=== PATIENT | male | born 1940 | race Caucasian/White ===

== ENCOUNTER 2018-05-10 13:58 | Observation (INO) | payer MEDICARE, BC, SELFPAY ==
[2018-05-10] VITALS (10 sets, daily range): BP systolic 121–173; BP diastolic 71–104; PULSE 57–118; RESP 15–20; TEMP 36.5–37.4; O2SAT 95–100; BMI 22.9
--- NOTE | 2018-05-10 14:13 | DI.RAD.S_ITS ---
PROCEDURE: XR CHEST 1V INDICATIONS: substernal chest pain TECHNIQUE: One view of the chest was acquired. COMPARISON: None. FINDINGS: Surgical changes and devices: None. Lungs and pleura: No pleural effusions or pneumothorax. Lungs are clear. Mediastinum: Mediastinal contours appear normal. Heart size is normal. Bones and chest wall: No suspicious bony lesions. Overlying soft tissues appear unremarkable. IMPRESSION: No acute cardiopulmonary disease process. Dictated by: Anusha Matos MD, PhD on 05/10/2018 at 14:40 Approved by: Anusha Matos MD, PhD on 05/10/2018 at 14:40
--- NOTE | 2018-05-10 14:30 | ED.CHESTPAIN ---
HPI - Chest Pain General Chief Complaint: Chest Pain Stated Complaint: CHEST PAIN Time Seen by Provider: 05/10/18 14:30 Source: patient Mode of arrival: ambulatory Limitations: no limitations History of Present Illness HPI narrative: 78-year-old male with a remote history of hypertension presents with severe substernal chest pain that started after eating today and lasted until arrival at the ER today. He received 4 baby aspirin and noted that over time his pain resolved. It was associated with severe nausea and vomiting but he denied shortness of breath, radiation of the pain, or diaphoresis. He has not had fevers or chills. He notes that he has a history of intermittent GERD and takes famotidine occasionally for this. This felt different in his heartburn. He is quite concerned because his father had a history of cardiac disease with a bypass surgery at age 75, and later at age 90 due to congestive heart failure. He has a trip to [place] planned next week and he is wanting to make sure that his heart is okay. At the time of my evaluation of him his chest pain had resolved. Related Data Home Medications Medication Instructions Recorded Confirmed cholecalciferol (vitamin D3) 2,000 unit PO DAILY 05/10/18 05/10/18 [Vitamin D3] famotidine 40 mg PO BEDTIME 05/10/18 05/10/18 multivitamin 1 tab PO DAILY 05/10/18 05/10/18 Allergies Allergy/AdvReac Type Severity Reaction Status Date / Time No Known Drug Allergies Allergy Verified 05/10/18 18:40 Review of Systems Review of Systems All systems reviewed & are unremarkable except as noted in HPI and below Constitutional Denies chills, Denies fever(s), Denies lethargy and Denies weakness Eyes Denies change in vision, Denies eye discharge, Denies irritation and Denies loss of vision ENT Ears, Nose, Mouth, and Throat: Denies change in voice, Denies neck pain and Denies sore throat Cardiovascular Reports chest pain, Denies irregular heart rhythm, Denies lightheadedness, Denies palpitations, Denies dyspnea, Denies dyspnea on exertion and Denies orthopnea Respiratory Denies cough, Denies dyspnea, Denies dyspnea on exertion and Denies wheezing Gastrointestinal Gastrointestinal: Denies abdominal pain, Denies change in bowel habits, Denies diarrhea, Reports nausea and Reports vomiting Genitourinary Denies hematuria, Denies flank pain, Denies urinary incontinence and Denies urinary urgency Musculoskeletal Denies neck pain Integumentary/Breasts Denies pruritus, Denies erythema, Denies rash and Denies wounds Neurologic Denies confusion, Denies loss of vision and Denies weakness Psychiatric Denies anxiety, Denies confusion, Denies depression, Denies homicidal ideation and Denies suicidal ideation Endocrine Denies palpitations Hematologic/Lymphatic Denies easy bruising Allergic/Immunologic Denies wheezing PFSH Medical History Prostate CA (Acute) Family History: Reviewed 05/10/18 by Maryse Quach MD Social History household members: spouse Smoking Status: Never smoker Exam Initial Vital Signs Initial Vital Signs: Vital Signs Temperature 97.7 F 05/10/18 14:02 Pulse Rate 81 05/10/18 14:02 Respiratory Rate 16 05/10/18 14:02 Pulse Oximetry 97 05/10/18 14:02 Const General: cooperative and well developed Nutritional Appearance: well nourished Orientation: alert, awake, oriented x3 and not confused HENMT Head: normocephalic and atraumatic Ears: external ears normal and TM's normal bilaterally Nose: external nose normal and No nasal discharge Face and sinus: sinuses nontender, face symmetric, no sinus tenderness and No dry mucous membranes Mouth: oral mucosae normal and moist mucous membranes Teeth and gingiva: dentition normal Throat: tonsils normal and uvula midline Eyes General: appearance normal, both eyes and all related structures Eyelids: eyelids normal Conjunctivae: conjunctivae normal Sclera: sclerae normal Pupils: PERRL EOM: EOM intact bilaterally Neck Neck: normal visual inspection, trachea midline, No lymphadenopathy, No midline deformity and No JVD Lymphatic: No lymphedema Chest Chest: normal inspection of the chest Resp Effort & Inspection: normal respiratory effort, able to speak in complete sentences, no respiratory distress and no use of accessory muscles Auscultation: clear to auscultation bilaterally, no rales, no rhonchi and no wheezes Cardio Rate: regular rate Rhythm: regular rhythm Heart Sounds: no click, no gallops, no murmurs and no rubs Pulses: normal peripheral pulses GI Inspection: non-distended Palpation: soft, no hepatosplenomegaly, No guarding, No pulsatile mass and No tender Auscultation: normal bowel sounds Back/Spine/Pelvis Back: No CVA tenderness Cervical Spine: cervical ROM normal and No pain with cervical ROM Thoracic/Lumbar Spine: thoracic and lumbar spine normal to inspection Skin General: no rashes or lesions noted, No jaundice and No petechiae Neuro General: alert, oriented x3, gait normal and no focal motor deficits Speech: speech normal Extrem General: full ROM, no clubbing, cyanosis or edema, no pedal edema and no calf tenderness Psych Appearance: well kempt Mental Status: mental status grossly normal Attitude: cooperative Thought Content: normal and suicidality Judgment: judgment good Scores HEART Score Heart Score history: Slightly Suspicious Heart Score EKG: Non-Specific repolarization disturbance Heart Score Age: > or = 65 years old Heart Score risk factors: 1-2 risk factors Heart Score troponin: < or = to normal limit Heart Score Total: 4 Course Orders Ordered: ED Orders 05/10/18 14:07 EKG-12 Lead Stat 05/10/18 14:13 XR chest 1V Stat 05/10/18 14:20 Complete Blood Count AUTO DIFF Stat Comprehensive Metabolic Panel Stat Lipase Stat Troponin with CK Cardiac Panel Stat 05/10/18 21:00 Troponin I Routine 05/11/18 05:00 Lipid Panel Routine Aspirin (Aspirin Ec) 81 mg PO DAILY PAGE Multivitamins (Tab-A-Ana Cristina) 1 tab PO DAILY PAGE Pantoprazole Sodium (Protonix) 40 mg PO 0700 PAGE Ranitidine HCl (Zantac) 150 mg PO BEDTIME PAGE Vitamin D (Vitamin D3) 2,000 unit PO DAILY PAGE Discontinued Medications Aspirin (Aspirin Chew) 324 mg PO NOW ONE Stop: 05/10/18 14:14 Last Admin: 05/10/18 14:36 Dose: 324 mg Sodium Chloride (Normal Saline 0.9%) 1,000 mls @ 150 mls/hr IV CONT PAGE Last Infusion: 05/10/18 18:42 Dose: 0 mls/hr Admin: 05/10/18 14:36 Dose: 150 mls/hr Reevaluation(s) Reevaluation #1: Discussed Dr. Fernandez advice with pt and he is somewhat uncomfortable with this plan. Plan to page cardiology for another opinion and discuss f/u directly with Dr. Thomason to facilitate f/u. Before this could be carried out Dr. Quach came to see pt and she will admit Consultations Consultation #1: Discussed patient with Dr. Maryse Quach. Notes his heart score should be a 3 and feels he can safely be followed up outpt. Time: 16:42 Vital Signs - 8 hr 05/10/18 14:02 05/10/18 14:15 05/10/18 14:35 Temperature 97.7 F Pulse Rate 81 67 118 H Respiratory Rate 16 17 20 Blood Pressure Blood Pressure [Right Arm] 145/78 H 121/91 H Pulse Oximetry 97 98 95 05/10/18 15:38 05/10/18 16:37 05/10/18 17:00 Temperature Pulse Rate 61 65 57 L Respiratory Rate 17 19 15 Blood Pressure Blood Pressure [Right Arm] 137/71 H 173/86 H 143/80 H Pulse Oximetry 98 99 100 05/10/18 18:15 05/10/18 18:35 Temperature 98.9 F Pulse Rate 57 L 66 Respiratory Rate 16 16 Blood Pressure 162/104 H Blood Pressure [Right Arm] 142/80 H Pulse Oximetry 98 96 MDM - Chest Pain Differential Diagnosis Likely stable angina, unstable angina pectoris, atypical chest pain, chest pain and other (GERD) Lab Data Attestation: I reviewed the patient's lab results. Result diagrams: 05/10/18 14:20 05/10/18 14:20 Lab Results 05/10/18 05/10/18 Range/Units 14:20 14:20 WBC 4.7 (4.5-11.0) X10^3/uL RBC 4.89 (4.5-5.9) X10^6/uL Hgb 15.2 (13.5-17.5) g/dL Hct 44.6 (41-53) % MCV 91.2 (80-100) fL MCH 31.1 (26-34) PG MCHC 34.1 (30-36) % RDW 13.1 (11.6-14.8) % Plt Count 204 (150-400) X10^3/uL Neut % (Auto) 73.5 (50-75) % Lymph % (Auto) 16.6 L (25-40) % [place] % (Auto) 6.2 (3-14) % Eos % (Auto) 2.9 (2-4) % Baso % (Auto) 0.8 (0-2) % Neut # (Auto) 3500 (0353-1073) /uL Sodium 141 (137-145) mmol/L Potassium 4.1 (3.4-5.1) mmol/L Chloride 103 (98-107) mmol/L Carbon Dioxide 29 (22-32) mmol/L BUN 20 (9-20) mg/dL Creatinine 1.10 (0.66-1.25) mg/dL Estimated GFR > 60.0 (>60) mL/min BUN/Creatinine Ratio 18.2 (6-22) Glucose 132 H (80-110) mg/dL Calcium 9.9 (8.4-10.2) mg/dL Total Bilirubin 0.7 (0.2-1.3) mg/dL AST 32 (17-59) IU/L ALT 36 (21-72) IU/L Alkaline Phosphatase 76 (38-126) U/L Total Creatine Kinase 72 (55-170) U/L Troponin I < 0.012 (0.01-0.034) ng/mL Total Protein 7.0 (6.3-8.2) g/dL Albumin 4.3 (3.5-5.0) g/dL Globulin 2.7 (1.7-4.1) g/dL Albumin/Globulin Ratio 1.6 (1.0-2.8) Lipase 143 (23-300) U/L Imaging Data Chest x-ray: Radiologist's impression: PROCEDURE: XR CHEST 1V INDICATIONS: substernal chest pain TECHNIQUE: One view of the chest was acquired. COMPARISON: None. FINDINGS: Surgical changes and devices: None. Lungs and pleura: No pleural effusions or pneumothorax. Lungs are clear. Mediastinum: Mediastinal contours appear normal. Heart size is normal. Bones and chest wall: No suspicious bony lesions. Overlying soft tissues appear unremarkable. IMPRESSION: No acute cardiopulmonary disease process. Dictated by: Anusha Matos MD, PhD on 05/10/2018 at 14:40 Approved by: Anusha Maots MD, PhD on 05/10/2018 at 14:40 ECG Data Attestation: I personally reviewed and interpreted this ECG as follows: Prior ECG tracings: available for review Interpretation: EKG performed at 1403 shows sinus rhythm with a rate of 71. T-wave inversion in lead 3, and mild ST depression noted in lead V4. No previous available for comparison. EKG repeated at 3:35 p.m. when patient was chest pain-free showed sinus bradycardia with a rate of 59. T-wave flattening in lead 3. Mild ST depression noted in V4 is less prominent MDM Narrative Medical decision making narrative: 78-year-old male presenting with severe chest pain after eating different from his typical GERD pain, and quite concerned about his heart given his family history. He has moderate risk for cardiac disease and although somewhat debatable about if he needs to be inpatient versus follow-up as an outpatient, it is my preference and his as well that he be evaluated inpatient. His EKG did show some minor/nonspecific repolarization abnormalities that improved when his chest pain resolved. After some debate, Dr. Quach kindly accepted the admission and will provide further workup and treatment. Discharge Plan Departure Patient Disposition: Admitted as Observation Clinical Impression: Chest pain Discharge Date/Time: 05/10/18 18:40 Interventions: ED Discharge Assessment Last Done: 05/10/18 18:40 Admit Date/Time: 05/10/18 16:51 Admit Provider: Maryse Quach
[2018-05-10 14:32] LABS: Add Manual Diff / Slide Review NO; Basophils Percent Auto 0.8 % (0-2); Eosinophils Percent Auto 2.9 % (2-4); Hematocrit 44.6 % (41-53); Hemoglobin 15.2 g/dL (13.5-17.5); Lymphocytes Percent Auto 16.6 % (25-40); Mean Corpuscular HGB Conc 34.1 % (30-36); Mean Corpuscular Hemoglobin 31.1 PG (26-34); Mean Corpuscular Volume 91.2 fL (80-100); Monocytes Percent Auto 6.2 % (3-14); Neutrophils Absolute Auto 3500 /uL (3000-5900); Neutrophils Percent Auto 73.5 % (50-75); Platelet Count 204 X10^3/uL (150-400); Red Blood Cell Count 4.89 X10^6/uL (4.5-5.9); Red Cell Distribution Width 13.1 % (11.6-14.8); White Blood Cell Count 4.7 X10^3/uL (4.5-11.0)
[2018-05-10] MEDS: ASPIRIN 81 MG TAB 324 MG PO (14:36)
[2018-05-10] MEDS: SODIUM CHLORIDE 0.9% 1,000 ML 150 ML IV (14:36)
[2018-05-10 14:41] LABS: Alanine Aminotransferase 36 IU/L (21-72); Albumin 4.3 g/dL (3.5-5.0); Albumin Globulin Ratio 1.6 (1.0-2.8); Alkaline Phosphatase 76 U/L (38-126); Aspartate Aminotransferase 32 IU/L (17-59); BUN Creatinine Ratio 18.2 (6-22); Bilirubin Total 0.7 mg/dL (0.2-1.3); Blood Urea Nitrogen 20 mg/dL (9-20); Calcium 9.9 mg/dL (8.4-10.2); Carbon Dioxide 29 mmol/L (22-32); Chloride 103 mmol/L (98-107); Creatine Kinase 72 U/L (55-170); Estimated Glomerular Filt Rate > 60.0 mL/min (>60); Globulin 2.7 g/dL (1.7-4.1); Glucose 132 mg/dL (80-110); HEMOLYSIS 20 (0-50); Lipase 143 U/L (23-300); Potassium 4.1 mmol/L (3.4-5.1); Sodium 141 mmol/L (137-145)
[2018-05-10 14:53] LABS: Troponin I < 0.012 ng/mL (0.01-0.034)
--- NOTE | 2018-05-10 17:02 | PM.HP.1 ---
History of Present Illness Date Patient Seen: 05/10/18 Time Patient Seen: 16:45 Chief complaint: CHEST PAIN Narrative: 78-year-old man, patient of Dr. Joey Anaya who was brought to the [facility] Emergency room earlier today for chest pain. He said he had lunch around 12:30. He ate chicken, rice and vegetables for lunch. He had sudden onset of chest pain after he had lunch. He described the pain was substernal. It was a severe pain. Severity was rated as 7 to 8/10. He did have nausea and was spitting out his oral secretions. He felt like he was not able to swallow, not even water. He was brought to the [facility] Emergency Room. Chest pain resolved after he arrived at the ER. EKG did not show significant ST-T changes. His 1st troponin was negative. He who was admitted to the medicine floor for chest pain. Patient History Comment: GERD History of hypertension, currently not on any medications Hyperlipidemia Prostate cancer, 2005, status post radioactive seed placement, radiation treatment, and Lupron therapy Last colonoscopy was 1-2 years ago Last EGD was about 18 years ago. Family & Social History Family History: Reviewed 05/10/18 by Maryse Quach MD Social History: He is . He lives with his . He drinks 1-2 alcoholic beverages a night. Denies cigarette smoking. He drinks 1-2 cups of coffee in the morning. Meds Home Medications Medication Instructions Recorded Confirmed Type cholecalciferol (vitamin D3) 2,000 unit PO DAILY 05/10/18 05/10/18 History [Vitamin D3] famotidine 40 mg PO BEDTIME 05/10/18 05/10/18 History multivitamin 1 tab PO DAILY 05/10/18 05/10/18 History Allergies Allergy/AdvReac Type Severity Reaction Status Date / Time No Known Drug Allergies Allergy Verified 05/10/18 14:13 Review of Systems Constitutional Comments: No fever chills or sweats. Cardiovascular Cardiovascular: Reports as per HPI Respiratory Comments: No cough or wheezing Gastrointestinal Gastrointestinal: Reports heartburn Genitourinary Comments: No dysuria Musculoskeletal Comments: No back pain Exam Vital Signs (past 8 hours): Vital Signs - 8 hr 05/10/18 14:02 05/10/18 14:15 05/10/18 14:35 Temperature 97.7 F Pulse Rate 81 67 118 H Respiratory Rate 16 17 20 Blood Pressure [Right Arm] 145/78 H 121/91 H Pulse Oximetry 97 98 95 05/10/18 15:38 05/10/18 16:37 Temperature Pulse Rate 61 65 Respiratory Rate 17 19 Blood Pressure [Right Arm] 137/71 H 173/86 H Pulse Oximetry 98 99 Pulse Oximetry 99 Oxygen Delivery Method Room Air Narrative Exam Narrative: GENERAL: Well-appearing, well-nourished and in no acute distress. HEENT: Head normocephalic, atraumatic. Eyes pupils equal round NECK: Supple, no JVD, CHEST: Breath sounds equal bilaterally, no wheezes rales or rhonchi. CARDIAC: Regular rate and rhythm without murmurs, rubs or gallops. ABDOMEN: Soft, nontender. Normoactive bowel sounds all 4 quadrants. No guarding or rebound. EXTREMITIES: Normal range of motion, no clubbing or edema. NEUROLOGICAL: Alert and oriented; Normal muscle strength on upper and lower extremities. Mild left-sided facial weakness SKIN: Warm, dry, no petechiae, no rashes or lesions. Objective Labs Result Diagrams: 05/10/18 14:20 05/10/18 14:20 Labs: Laboratory Results - last 24 hr 05/10/18 05/10/18 14:20 14:20 WBC 4.7 RBC 4.89 Hgb 15.2 Hct 44.6 MCV 91.2 MCH 31.1 MCHC 34.1 RDW 13.1 Plt Count 204 Neut % (Auto) 73.5 Lymph % (Auto) 16.6 L [place] % (Auto) 6.2 Eos % (Auto) 2.9 Baso % (Auto) 0.8 Neut # (Auto) 3500 Sodium 141 Potassium 4.1 Chloride 103 Carbon Dioxide 29 BUN 20 Creatinine 1.10 Estimated GFR > 60.0 BUN/Creatinine Ratio 18.2 Glucose 132 H Calcium 9.9 Total Bilirubin 0.7 AST 32 ALT 36 Alkaline Phosphatase 76 Total Creatine Kinase 72 Troponin I < 0.012 Total Protein 7.0 Albumin 4.3 Globulin 2.7 Albumin/Globulin Ratio 1.6 Lipase 143 Assessment & Plan Plan: Assessment/Plan Narrative: 1. Chest pain: Atypical for coronary artery disease. His chest pain is most likely from esophageal spasm. Patient does have a heart score of 4. He is very concerned about possible coronary artery disease with his family history of coronary artery disease in his father and his sister's recent episode of chest pain. We will check serial troponin to rule out [place]. Schedule him for a nuclear medicine treadmill stress test in the morning. 2. GERD: He has GERD symptom is not adequately controlled. We will start him on Protonix 40 mg once a day. Continue H2 sera at night. 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 3. Hyperlipidemia: Recheck fasting lipid panel in the morning. He may benefit from statin therapy 4. Hypertension: His blood pressure was noticed to be 170 when I interviewed him at the ER. He says his blood pressure is usually around 120 systolic. We will continue monitor. He is not currently on any antihypertensive medications. 5. 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 He was noted to have mild left-sided facial weakness on physical exam. He has been having mild left-sided facial discomfort with left ear pain for about week. 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 Since his onset was a week ago, no treatment is needed at this time. 6. Disposition: Likely discharge home later tomorrow after stress test.
--- NOTE | 2018-05-10 17:11 | P.HP_ITS ---
History of Present Illness Date Patient Seen: 05/10/18 Time Patient Seen: 16:45 Chief complaint: CHEST PAIN Narrative: 78-year-old man, patient of Dr. Joey Anaya who was brought to the [facility] Emergency room earlier today for chest pain. He said he had lunch around 12:30. He ate chicken, rice and vegetables for lunch. He had sudden onset of chest pain after he had lunch. He described the pain was substernal. It was a severe pain. Severity was rated as 7 to 8/10. He did have nausea and was spitting out his oral secretions. He felt like he was not able to swallow, not even water. He was brought to the [facility] Emergency Room. Chest pain resolved after he arrived at the ER. EKG did not show significant ST-T changes. His 1st troponin was negative. He who was admitted to the medicine floor for chest pain. Patient History Comment: GERD History of hypertension, currently not on any medications Hyperlipidemia Prostate cancer, 2005, status post radioactive seed placement, radiation treatment, and Lupron therapy Last colonoscopy was 1-2 years ago Last EGD was about 18 years ago. Family & Social History Family History: Reviewed 05/10/18 by Maryse Quach MD Social History: He is . He lives with his . He drinks 1-2 alcoholic beverages a night. Denies cigarette smoking. He drinks 1-2 cups of coffee in the morning. Meds Home Medications Medication Instructions Recorded Confirmed Type cholecalciferol (vitamin D3) 2,000 unit PO DAILY 05/10/18 05/10/18 History [Vitamin D3] famotidine 40 mg PO BEDTIME 05/10/18 05/10/18 History multivitamin 1 tab PO DAILY 05/10/18 05/10/18 History Allergies Allergy/AdvReac Type Severity Reaction Status Date / Time No Known Drug Allergies Allergy Verified 05/10/18 14:13 Review of Systems Constitutional Comments: No fever chills or sweats. Cardiovascular Cardiovascular: Reports as per HPI Respiratory Comments: No cough or wheezing Gastrointestinal Gastrointestinal: Reports heartburn Genitourinary Comments: No dysuria Musculoskeletal Comments: No back pain Exam Vital Signs (past 8 hours): Vital Signs - 8 hr 3 05/10/18 14:02 05/10/18 14:15 05/10/18 14:35 Temperature 97.7 F Pulse Rate 81 67 118 H Respiratory Rate 16 17 20 Blood Pressure [Right Arm] 145/78 H 121/91 H Pulse Oximetry 97 98 95 3 05/10/18 15:38 05/10/18 16:37 Temperature Pulse Rate 61 65 Respiratory Rate 17 19 Blood Pressure [Right Arm] 137/71 H 173/86 H Pulse Oximetry 98 99 Pulse Oximetry 99 Oxygen Delivery Method Room Air Narrative Exam Narrative: GENERAL: Well-appearing, well-nourished and in no acute distress. HEENT: Head normocephalic, atraumatic. Eyes pupils equal round NECK: Supple, no JVD, CHEST: Breath sounds equal bilaterally, no wheezes rales or rhonchi. CARDIAC: Regular rate and rhythm without murmurs, rubs or gallops. ABDOMEN: Soft, nontender. Normoactive bowel sounds all 4 quadrants. No guarding or rebound. EXTREMITIES: Normal range of motion, no clubbing or edema. NEUROLOGICAL: Alert and oriented; Normal muscle strength on upper and lower extremities. Mild left-sided facial weakness SKIN: Warm, dry, no petechiae, no rashes or lesions. Objective Labs Result Diagrams: 05/10/18 14:20 05/10/18 14:20 Labs: Laboratory Results - last 24 hr 05/10/18 05/10/18 14:20 14:20 WBC 4.7 RBC 4.89 Hgb 15.2 Hct 44.6 MCV 91.2 MCH 31.1 MCHC 34.1 RDW 13.1 Plt Count 204 Neut % (Auto) 73.5 Lymph % (Auto) 16.6 L [place] % (Auto) 6.2 Eos % (Auto) 2.9 Baso % (Auto) 0.8 Neut # (Auto) 3500 Sodium 141 Potassium 4.1 Chloride 103 Carbon Dioxide 29 BUN 20 Creatinine 1.10 Estimated GFR > 60.0 BUN/Creatinine Ratio 18.2 Glucose 132 H Calcium 9.9 Total Bilirubin 0.7 AST 32 ALT 36 Alkaline Phosphatase 76 Total Creatine Kinase 72 Troponin I < 0.012 Total Protein 7.0 Albumin 4.3 Globulin 2.7 Albumin/Globulin Ratio 1.6 Lipase 143 Assessment & Plan Plan: Assessment/Plan Narrative: 1. Chest pain: Atypical for coronary artery disease. His chest pain is most likely from esophageal spasm. Patient does have a heart score of 4. He is very concerned about possible coronary artery disease with his family history of coronary artery disease in his father and his sister's recent episode of chest pain. We will check serial troponin to rule out [place]. Schedule him for a nuclear medicine treadmill stress test in the morning. 2. GERD: He has GERD symptom is not adequately controlled. We will start him on Protonix 40 mg once a day. Continue H2 sera at night. 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 3. Hyperlipidemia: Recheck fasting lipid panel in the morning. He may benefit from statin therapy 4. Hypertension: His blood pressure was noticed to be 170 when I interviewed him at the ER. He says his blood pressure is usually around 120 systolic. We will continue monitor. He is not currently on any antihypertensive medications. 5. 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 He was noted to have mild left-sided facial weakness on physical exam. He has been having mild left-sided facial discomfort with left ear pain for about week. 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 Since his onset was a week ago, no treatment is needed at this time. 6. Disposition: Likely discharge home later tomorrow after stress test.
--- NOTE | 2018-05-10 19:05 | PC.NURSE ---
ADMISSION Received pt at approximately 1835, pt ambulated into room from ED with ED RN escort. Ox3, pleasant and cooperative with care. completely independent with ADLs. pt slightly hypertensive (already reported to MD while pt in ED) denies any chest pain, dizziness, SOB, or N/V. Telemetry monitoring maintained. pt educated on NM stress test planned for tomorrow and no caffeine diet. Oriented pt and to room and call light.
[2018-05-10 21:50] LABS: Troponin I < 0.012 ng/mL (0.01-0.034)
[2018-05-11 00:35] VITALS: O2SAT 97
[2018-05-11 05:04] VITALS: BP 130/78; PULSE 71; RESP 18; TEMP 36.6
[2018-05-11 05:51] LABS: Cholesterol 170 mg/dL (140-199); HDL Cholesterol 47 mg/dL (40-60); LDL Cholesterol Calculated 97 mg/dL (<100); Triglycerides 131 mg/dL (35-150)
[2018-05-11] MEDS: PANTOPRAZOLE 40 MG TABLET PO (06:05)
[2018-05-11] MEDS: SODIUM CHLORIDE 0.9% FLUSH 10 ML IV (08:41)
[2018-05-11 08:57] VITALS: O2SAT 97
[2018-05-11 09:16] VITALS: BP 135/79; PULSE 59; RESP 16; TEMP 36.6; O2SAT 95
[2018-05-11] MEDS: MULTIVITAMIN 1 TABLET 1 TAB PO (10:10)
[2018-05-11] MEDS: ASPIRIN EC 81 MG TABLET PO (10:10)
[2018-05-11] MEDS: CHOLECALCIFEROL (VITAMIN D3) 1,000 UNIT TABLET 2000 UNIT PO (10:11)
[2018-05-11 11:50] VITALS: BP 140/82; PULSE 62; RESP 18; TEMP 36.4; O2SAT 96
--- NOTE | 2018-05-11 14:01 | CM.DANOTE ---
DCP: assessment: case received, EMR reviewed and went to room to check in with pt. Room empty. RN Lilli reports pt is currently off floor getting a stress test. She reports he will likely be able to go home afterwards and that his is aware and will be returning. Pt is a 78 year old male who admitted yesterday late afternoon to care of hospitalist team. PCP: Dr. Joey Thomason Payer: Medicare and [facility] RN confirms current admission status is observation. P: check in with pt prn after he arrives back to floor to assist with any d/c planning needs (thus far none are identified by care team members). If home, will likely have clinic followup.
--- NOTE | 2018-05-11 16:40 | PM.DS.1 ---
History of Present Illness Chief complaint: CHEST PAIN Narrative: 78-year-old man, patient of Dr. Joey Thomason'florencio who was brought to the [facility] Emergency room earlier today for chest pain. He said he had lunch around 12:30. He ate chicken, rice and vegetables for lunch. He had sudden onset of chest pain after he had lunch. He described the pain was substernal. It was a severe pain. Severity was rated as 7 to 8/10. He did have nausea and was spitting out his oral secretions. He felt like he was not able to swallow, not even water. He was brought to the [facility] Emergency Room. Chest pain resolved after he arrived at the ER. EKG did not show significant ST-T changes. His 1st troponin was negative. He who was admitted to the medicine floor for chest pain. Discharge Providers Date of admission: 05/10/18 16:51 Primary care physician: Dr. Forest Thomason Discharge provider: Maryse Quach MD Discharge Date: 05/11/18 Summary Discharge Diagnosis: 1. Chest pain, possibly secondary to esophageal spasm 2. GERD 3. Hypertension 4. 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 He was ruled out for FL with 2-troponins. He had a nuclear medicine treadmill stress test which did not reveal any perfusion defect. The etiology of his chest pain is most likely from possible esophageal spasm. We have started him on Protonix 40 mg in the morning. Encouraged him to have outpatient EGD study to evaluate for possible esophageal stricture and screening for Yao's esophagus. A fasting lipid panel was checked while he was in the hospital. His total cholesterol was 170, LDL 97, HDL 47, and triglyceride was 131. Status at Discharge Cognitive/behavioral status at discharge: Alert and oriented x3 Functional status at discharge: independent ambulation Overall status at discharge: patient is back to baseline Time Spent with Patient Greater than 30 minutes Exam Vital Signs (past 8 hours): Vital Signs - 8 hr 05/11/18 08:57 05/11/18 09:16 05/11/18 11:50 Temperature 97.9 F 97.6 F Pulse Rate 59 L 62 Respiratory Rate 16 18 Blood Pressure 135/79 H 140/82 H Pulse Oximetry 97 95 96 Pulse Oximetry 96 Oxygen Delivery Method Room Air Oxygen Flow Rate 0 Objective Labs Result Diagrams: 05/10/18 14:20 05/10/18 14:20 Labs: Laboratory Results - last 24 hr 05/10/18 05/11/18 21:12 05:11 Troponin I < 0.012 Triglycerides 131 Cholesterol 170 LDL Cholesterol, Calc 97 HDL Cholesterol 47 Discharge Plan Discharge Plan Discharge Problem: Chest pain Patient Disposition: Home, Self-Care Discharge comment: Follow-up with Dr. Thomason within 2 weeks Provider Discharge Instructions Diet: Low-cholesterol Activity: as tolerated Discharge Data Attending Provider: Maryse Quach Admit Date/Time: 05/10/18 16:51
--- NOTE | 2018-05-11 16:40 | PC.NURSE ---
discharge pt has completed stress test and per , it was clear. Pt denies any chest pain/discomfort. alert and oriented and independent in room. Awaiting DC order from . Supportive spouse at bedside.
--- NOTE | 2018-05-11 16:45 | P.DS_ITS ---
History of Present Illness Chief complaint: CHEST PAIN Narrative: 78-year-old man, patient of Dr. Joey Thomason'florencio who was brought to the [facility] Emergency room earlier today for chest pain. He said he had lunch around 12:30. He ate chicken, rice and vegetables for lunch. He had sudden onset of chest pain after he had lunch. He described the pain was substernal. It was a severe pain. Severity was rated as 7 to 8/10. He did have nausea and was spitting out his oral secretions. He felt like he was not able to swallow, not even water. He was brought to the [facility] Emergency Room. Chest pain resolved after he arrived at the ER. EKG did not show significant ST-T changes. His 1st troponin was negative. He who was admitted to the medicine floor for chest pain. Discharge Providers Date of admission: 05/10/18 16:51 Primary care physician: Dr. Forest Thomason Discharge provider: Maryse Quach MD Discharge Date: 05/11/18 Summary Discharge Diagnosis: 1. Chest pain, possibly secondary to esophageal spasm 2. GERD 3. Hypertension 4. 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 He was ruled out for VT with 2-troponins. He had a nuclear medicine treadmill stress test which did not reveal any perfusion defect. The etiology of his chest pain is most likely from possible esophageal spasm. We have started him on Protonix 40 mg in the morning. Encouraged him to have outpatient EGD study to evaluate for possible esophageal stricture and screening for Yao's esophagus. A fasting lipid panel was checked while he was in the hospital. His total cholesterol was 170, LDL 97, HDL 47, and triglyceride was 131. Status at Discharge Cognitive/behavioral status at discharge: Alert and oriented x3 Functional status at discharge: independent ambulation Overall status at discharge: patient is back to baseline Time Spent with Patient Greater than 30 minutes Exam Vital Signs (past 8 hours): Vital Signs - 8 hr 3 05/11/18 08:57 05/11/18 09:16 05/11/18 11:50 Temperature 97.9 F 97.6 F Pulse Rate 59 L 62 Respiratory Rate 16 18 Blood Pressure 135/79 H 140/82 H Pulse Oximetry 97 95 96 Pulse Oximetry 96 Oxygen Delivery Method Room Air Oxygen Flow Rate 0 Objective Labs Result Diagrams: 05/10/18 14:20 05/10/18 14:20 Labs: Laboratory Results - last 24 hr 05/10/18 05/11/18 21:12 05:11 Troponin I < 0.012 Triglycerides 131 Cholesterol 170 LDL Cholesterol, Calc 97 HDL Cholesterol 47 Discharge Plan Discharge Plan Discharge Problem: Chest pain Patient Disposition: Home, Self-Care Discharge comment: Follow-up with Dr. Thomason within 2 weeks Provider Discharge Instructions Diet: Low-cholesterol Activity: as tolerated Discharge Data Attending Provider: Maryse Quach Admit Date/Time: 05/10/18 16:51
--- NOTE | 2018-05-11 18:02 | DI.NM.S_ITS ---
DATE OF SERVICE: 05/11/2018 PROCEDURE PERFORMED: Exercise treadmill stress only myocardial perfusion imaging study with gating to assess ejection fraction and regional wall motion. ORDERING PROVIDER: Maryse Quach MD INDICATIONS: The patient is 78-year-old male admitted with severe chest discomfort but normal troponins and ECG. EXERCISE TREADMILL TESTING: The patient was able to exercise for a total of 9 minutes 2 seconds on a standard Jack protocol suggesting good exercise capacity within ORLY of -25%. He had a normal heart rate response, achieving a maximum heart rate of 161 bpm (113% of his predicted maximum) and a mildly hypertensive blood pressure response with a resting blood pressure of 132/82, increasing to a maximum of 200/90. His resting ECG appears normal. With exercise, he develops 1-[address] depression that is slightly downsloping in the inferior leads but resolves within 1 minute of recovery and thus is nonspecific for ischemia. There were no arrhythmias. He had no chest discomfort. At 8 minutes of exercise and a heart rate of 160 bpm, 26.5 mCi of technetium-99 Myoview was injected and the patient was an image 30 minutes later using a gated SPECT acquisition protocol. Because of the normal stress images, it was felt that resting images were not needed. FINDINGS: 1. Raw Data: There is fairly good myocardial tracer uptake. Lung/heart ratio is normal at 0.31. 2. Quantitative Gated SPECT: Post stress ejection fraction is estimated at 64% without any focal wall motion abnormality. End-diastolic volume is normal at 89 mL. 3. Myocardial Perfusion Imaging: Post stress supine images show a fairly normal myocardial perfusion pattern with slightly reduced tracer activity at the base of the inferior wall in a pattern consists of diaphragmatic attenuation, supported by its complete resolution on the prone images which reveal a completely normal myocardial perfusion pattern. CONCLUSION: 1. Normal myocardial perfusion study. 2. No evidence for significant myocardial ischemia or previous myocardial infarction. 3. Normal left ventricular systolic function without any focal wall motion abnormality. 4. Very good exercise capacity without angina. There is some nonspecific ST depression likely due to his hypertensive blood pressure response to exercise. Manny Hahn - RS/malia/ab doc#: [id number]/job#: [id number] dd: 05/11/2018 16:40:00 dt: 05/11/2018 17:46:00 DICTATING MD/COPIES TO: Teodoro Dodd MD; Maryse Quach MD; Joey Thomason MD COPIES MNE: TRACY VASQUEZ; FELICIANO
== END 2018-05-11 16:52 | disposition home or self-care (01) ==
LOC: ED 16:48 → AC 16:52
PROVIDERS: Admitting Provider Internal Medicine; Emergency Provider Emergency Medicine; Visit Provider Internal Medicine
DX: R07.9 Chest pain, unspecified (principal); I10 Essential (primary) hypertension; K21.9 Gastro-esophageal reflux disease without esophagitis; E78.5 Hyperlipidemia, unspecified
CPT/HCPCS: 36415; 36591; 71045; 78451; 80053; 80061; 82550; 82553; 83690; 84484; 85025; 93005; 93016; 93017; 93018; 96360; 96361; 99283; 99285; G0378; A9502

== ENCOUNTER 2023-01-05 21:19 | Emergency (ER) | payer MEDICARE, BC, SELFPAY ==
[2018-05-10 18:41] VITALS: BMI 22.9
[2023-01-05] VITALS (8 sets, daily range): BP systolic 127–180; BP diastolic 67–91; PULSE 61–75; RESP 19; TEMP 36.6; O2SAT 94–99; BMI 26.6
[2023-01-05] MEDS: LIDOCAINE 2% (GLYDO) 6 ML GEL TOP (21:30)
[2023-01-05 22:38] LABS: Appearance Urine UA TURBID; Color Urine UA RED; Glucose Urine UA NEGATIVE (Negative); Ketones Urine UA TRACE (NEGATIVE); Leukocyte Esterase Urine UA TRACE (NEGATIVE); Nitrite Urine UA POSITIVE (Negative); Occult Blood Urine UA 3+ (Negative); Protein Urine UA 3+ (Negative); Specific Gravity Urine UA 1.015 (1.000-1.035)
[2023-01-05 22:42] LABS: RBC Urine >100/HPF (0-5/HPF)
[2023-01-05 22:43] LABS: Squamous Epithelial Cell Urine 0-1 /HPF (0-5/HPF); WBC Urine 0-1/HPF (0-5/HPF)
[2023-01-05 22:44] LABS: Amorphous Sediment Urine 1+; Bacteria Urine Occasional (0-1); Culture Indicated Urine Specimen Cultured
--- NOTE | 2023-01-05 22:58 | ED.MALEGU ---
HPI - Male Genitourinary General Chief complaint: Urogenital-Male Stated complaint: wants a urinary catheter Time Seen by Provider: 01/05/23 21:28 Source: patient Mode of arrival: Ambulatory History of Present Illness HPI Narrative: 82-year-old male nonsmoker with history prostate cancer, hematuria presents with his in the chief complaint of increasing difficulty urinating over the course of the day and building suprapubic tenderness. He had been having hematuria and had a cystoscopy with the [facility] earlier today and unfortunately the findings are highly likely to be bladder cancer. He had been given a single dose of an antibiotic prior to the procedure and is otherwise asymptomatic. He denies dizziness, weakness or lightheadedness he has no runny nose, sore throat or cough. Denies chest pain or shortness of breath. He has had no nausea, vomiting or diarrhea. Related Data Home Medications Medication Instructions Recorded Confirmed cholecalciferol (vitamin D3) 50 2,000 unit PO DAILY 05/10/18 05/10/18 mcg (2,000 unit) capsule (Vitamin D3) famotidine 40 mg tablet 40 mg PO BEDTIME 05/10/18 05/10/18 multivitamin 1 tab PO DAILY 05/10/18 05/10/18 Previous Rx's Medication Instructions Recorded pantoprazole 40 mg tablet,delayed 40 mg PO QAM #30 tabs 05/11/18 release (Protonix) ciprofloxacin HCl 500 mg tablet 500 mg PO BID #14 tabs 01/05/23 (Cipro) Allergies Allergy/AdvReac Type Severity Reaction Status Date / Time No Known Drug Allergies Allergy Verified 05/10/18 18:40 Review of Systems Review of Systems Narrative: GENERAL: Denies chills, fatigue, malaise, fever, sweats. HEENT: Denies sinus pain, ear pain, sore throat, difficulty swallowing, dizziness. RESPIRATORY: Denies dyspnea, cough, wheezing, hemoptysis, sputum. CARDIOVASCULAR: Denies chest pain, palpitations, orthopnea, edema, GASTROINTESTINAL: Denies nausea, vomiting, abdominal pain, diarrhea, constipation, melena. : See HPI MUSCULOSKELETAL: denies weakness, joint pain, or bony pain SKIN: Denies rash, skin lesions, or other NEUROLOGIC: Denies weakness, headache, numbness, change in speech, confusion, seizures, incoordination. PSYCHIATRIC: No concerning psychosocial issues. 12 point review of systems is negative except for those stated above Patient History Medical History (Updated 01/05/23 @ 23:01 by Pavan Talley DO) Prostate CA Family History Father Congestive heart failure Sister No problems noted. Social History household members: spouse Smoking Status: Never smoker Smoking Status: Never smoker alcohol intake frequency: a few times a week Substance Use Type: does not use Exam Narrative Exam Narrative: GENERAL: [82] year old patient appears stated age. Well-developed patient, in mild distress. HEAD: Atraumatic. Normocephalic. EYES: Pupils equal round and reactive. Extraocular motions intact. No scleral icterus. No injection or drainage. ENT: Nose without bleeding, purulent drainage. Throat without erythema, tonsillar hypertrophy or exudate. Airway patent. NECK: Trachea midline. Non tender CARDIOVASCULAR: Regular rate and rhythm without murmurs, gallops, or rubs. RESPIRATORY: Clear to auscultation. Breath sounds equal bilaterally. No wheezes, rales, or rhonchi. GASTROINTESTINAL: Abdomen soft, suprapubic tenderness, nondistended. EXTREMITIES: No edema or joint tenderness. BACK: Nontender without deformity or crepitance. No flank tenderness. NEURO: AOx3. SKIN: No rash or erythema of visible areas Initial Vital Signs Initial Vital Signs: Vital Signs Pulse Rate 75 01/05/23 21:25 Pulse Oximetry 97 01/05/23 21:25 Course Course Course Narrative: Nursing performed postvoid residual bladder scan noting greater than 500 mL, Hawkins catheter easily placed which resulted in blood tinged urine, patient did make note of the passage of small clots which is part of what drove him to get the cystoscopy in the 1st place. He had significant if not complete resolution of symptoms after placement of Hawkins Orders Ordered: Discontinued Medications Lidocaine HCl (Lidocaine 2% (Glydo) 6 Ml Gel) 6 ml TOP NOW ONE Stop: 01/05/23 21:28 Last Admin: 01/05/23 21:30 Dose: 6 ml Documented By: AP Vital Signs Vital signs: Vital Signs - 8 hr 01/05/23 22:08 01/05/23 21:25 01/05/23 21:26 Temperature 97.9 F Pulse Rate 74 75 Respiratory Rate 19 Blood Pressure 180/91 H 180/91 H Pulse Oximetry 98 97 Oxygen Delivery Method Room Air 01/05/23 21:26 01/05/23 21:30 01/05/23 21:30 Temperature Pulse Rate 73 73 Respiratory Rate Blood Pressure 161/86 H Pulse Oximetry 99 99 Oxygen Delivery Method 01/05/23 22:00 01/05/23 22:01 01/05/23 22:01 Temperature Pulse Rate 75 71 Respiratory Rate Blood Pressure 153/84 H Pulse Oximetry 98 97 Oxygen Delivery Method 01/05/23 22:30 01/05/23 22:30 01/05/23 23:00 Temperature Pulse Rate 65 Respiratory Rate Blood Pressure 127/69 131/67 Pulse Oximetry 94 Oxygen Delivery Method 01/05/23 23:00 Temperature Pulse Rate 61 Respiratory Rate Blood Pressure Pulse Oximetry 94 Oxygen Delivery Method MDM - Male Genitourinary Lab Data Labs: Lab Results 01/05/23 Range/Units 22:05 Urine Color Red Urine Appearance Turbid Urine pH 5.0 (4.5-8.0) Ur Specific [place] 1.015 (1.000-1.035) Urine Protein 3+ H (Negative) Urine Glucose (UA) Negative (Negative) g/dL Urine Ketones Trace H (NEGATIVE) Urine Occult Blood 3+ H (Negative) Urine Nitrate Positive H (Negative) Urine Bilirubin TNP Urine Urobilinogen 1.0 (0.2) E.U./dL Ur Leukocyte Esterase Trace H (NEGATIVE) Urine RBC >100/hpf H (0-5/HPF) Urine WBC 0-1/hpf (0-5/HPF) Ur Squamous Epith Cells 0-1 /hpf (0-5/HPF) Amorphous Sediment 1+ Urine Bacteria Occasional (0-1) (None) Ur Culture Indicated? Specimen cultured MDM Narrative Medical decision making narrative: [82-year-old male with ongoing complaints of hematuria presents with inability to urinate, bladder scan notes large amount of postvoid residual urine] Multiple etiologies for patient's symptoms considered including, but not limited to: [Urinary retention, UTI versus other] Prior Charts reviewed: Prior ED notes reviewed Labs reviewed and interpreted by myself: Urine with blood and evidence of infection Imaging reviewed: Bladder scan notes large amount of postvoid residual urine Patient's symptoms improved over duration of stay with above-stated therapies. Findings and discharge diagnosis discussed with patient/family followed by verbalization of understanding Return precautions discussed with patient/family whom verbalize understanding of diagnosis and plan Discharge Plan Departure Patient Disposition: Home Clinical Impression: Acute urinary retention, Hematuria, Acute UTI Instructions: DI for Urinary Retention in Men Activity Restrictions/Additional Instructions: *You have been diagnosed with [urinary retention] *What to do: *Please continue to take your regular medications as directed. [ x] New medication prescriptions sent to your pharmacy: [ [facility]] [ ] New medication written as a paper prescription [ ] No new medications given *Please follow up with your primary urologist in 2-3 days, call for an appointment. Let them know you were seen in the Emergency Department and that we ask that you be seen in follow up. *If you do not have a primary care provider please contact the [facility] Resource line at [phone]. They will ask some questions about your medical history and help get you set up with a doctor in the community. *Return to Emergency Department if you should have any new, worsening or concerning symptoms, such as [fever greater than 101 F, shaking chills, worsening pain, persistent vomiting or other bothersome symptoms] Prescriptions: New ciprofloxacin HCl [Cipro] 500 mg tablet 500 mg PO BID Qty: 14 0RF No Action famotidine 40 mg tablet 40 mg PO BEDTIME multivitamin Tablet 1 tab PO DAILY cholecalciferol (vitamin D3) [Vitamin D3] 2,000 unit Capsule 2,000 unit PO DAILY pantoprazole [Protonix] 40 mg tablet,delayed release (DR/EC) 40 mg PO QAM Qty: 30 0RF Referrals: Blayne Bynum MD [Primary Care Provider] - Stand Alone Forms: Patient Portal/API
== END 2023-01-05 23:34 | disposition home or self-care (01) ==
PROVIDERS: Emergency Provider Emergency Medicine; PCP Urology
DX: N39.0 Urinary tract infection, site not specified (principal); R33.8 Other retention of urine; R31.9 Hematuria, unspecified
CPT/HCPCS: 81001; 87086; 99282; 99283

== ENCOUNTER 2023-01-07 22:37 | Emergency (ER) | payer MEDICARE, BC, SELFPAY ==
[2018-05-10 18:41] VITALS: BMI 22.9
[2023-01-07 22:44] VITALS: BP 193/96; PULSE 66; RESP 18; TEMP 37.2; O2SAT 97; BMI 22.9
[2023-01-07 22:56] LABS: Appearance Urine UA CLEAR; Bilirubin Urine UA NEGATIVE (NEGATIVE); Glucose Urine UA NEGATIVE (Negative); Ketones Urine UA NEGATIVE (NEGATIVE); Leukocyte Esterase Urine UA TRACE (NEGATIVE); Nitrite Urine UA NEGATIVE (Negative); Occult Blood Urine UA 3+ (Negative); Protein Urine UA 1+ (Negative); Specific Gravity Urine UA 1.015 (1.000-1.035); Urobilinogen Urine UA 0.2 E.U./dL (0.2); pH Urine UA 5.5 (4.5-8.0)
[2023-01-07 22:57] VITALS: PULSE 63; O2SAT 97
[2023-01-07 22:58] LABS: Color Urine UA Amber
--- NOTE | 2023-01-07 22:59 | ED_ITS ---
HPI - Male Genitourinary General Chief complaint: Urogenital-Male Stated complaint: Catheter problems Time Seen by Provider: 01/07/23 22:59 Source: patient Mode of arrival: Ambulatory History of Present Illness HPI Narrative: Patient is an 82-year-old male history of prostate cancer recent urinary retention and hematuria presenting today with penile irritation. He was seen evaluated here on 01/05/2023 for gross hematuria. He was seen by urology and had a cystoscopy earlier that same day. He denies any abdominal pain nausea or vomiting. He reports he urine has cleared and is now obviously yellow with very small blood clots he is not on any anticoagulation or antiplatelet medication. He reports that the Hawkins catheter was difficult to place had any needed 16 Persian, however he does still leaks some urine. He reports every time he pees it is irritated and quite painful. His urine did show nitrates he was appropriately placed on Macrobid however his culture did not show any growth. He denies any fever or chills Related Data Home Medications Medication Instructions Recorded Confirmed cholecalciferol (vitamin D3) 50 2,000 unit PO DAILY 05/10/18 05/10/18 mcg (2,000 unit) capsule (Vitamin D3) famotidine 40 mg tablet 40 mg PO BEDTIME 05/10/18 05/10/18 multivitamin 1 tab PO DAILY 05/10/18 05/10/18 Previous Rx's Medication Instructions Recorded pantoprazole 40 mg tablet,delayed 40 mg PO QAM #30 tabs 05/11/18 release (Protonix) ciprofloxacin HCl 500 mg tablet 500 mg PO BID #14 tabs 01/05/23 (Cipro) phenazopyridine 100 mg tablet 100 mg PO TID PRN pain 6 doses #6 01/07/23 (Pyridium) tabs Allergies Allergy/AdvReac Type Severity Reaction Status Date / Time No Known Drug Allergies Allergy Verified 05/10/18 18:40 Review of Systems Review of Systems ROS Unobtainable: All systems reviewed & are unremarkable except as noted in HPI and below Patient History Medical History Prostate CA Family History Father Congestive heart failure Sister No problems noted. Social History household members: spouse Smoking Status: Never smoker Smoking Status: Never smoker alcohol intake frequency: a few times a week Substance Use Type: does not use Exam Initial Vital Signs Initial Vital Signs: Vital Signs Temperature 99 F 01/07/23 22:44 Pulse Rate 66 01/07/23 22:44 Respiratory Rate 18 01/07/23 22:44 Blood Pressure 193/96 H 01/07/23 22:44 Pulse Oximetry 97 01/07/23 22:44 Oxygen Delivery Method 01/07/23 22:44 GENERAL: Alert well-appearing 82-year-old male CARDIOVASCULAR: peripheral pulses in tact, cap refill <2 sec RESPIRATORY: No respiratory distress, speaks in full sentences without difficulty ABDOMEN: Soft, nontender, no guarding or rebound : Hawkins catheter in place to both penis does not show any ulceration wound or erythema. Catheter is draining clear urine with small flecks of blood clots EXTREMITIES: Normal range of motion, no clubbing or edema. Neurovascularly intact NEUROLOGICAL: Cranial nerves II through XII grossly intact. Normal gait and speech. SKIN: Warm, dry, no petechiae, no rashes or lesions. Course Orders Ordered: ED Orders 01/07/23 22:48 Urinalysis and Microscopic Stat Urine Culture Stat Discontinued Medications Lidocaine HCl (Lidocaine 2% (Glydo) 6 Ml Gel) 6 ml TOP NOW ONE Stop: 01/07/23 23:15 Last Admin: 01/07/23 23:17 Dose: 6 ml Phenazopyridine HCl (Phenazopyridine 100 Mg Tablet) 200 mg PO NOW ONE Stop: 01/07/23 23:14 Last Admin: 01/07/23 23:18 Dose: 200 mg Vital Signs Vital signs: Vital Signs - 8 hr 01/07/23 22:44 01/07/23 22:57 01/07/23 23:00 Temperature 99 F Pulse Rate 66 63 Respiratory Rate 18 Blood Pressure 193/96 H 162/89 H Pulse Oximetry 97 97 Oxygen Delivery Method Room Air 01/07/23 23:00 01/07/23 23:30 01/07/23 23:30 Temperature Pulse Rate 63 58 L Respiratory Rate Blood Pressure 145/71 H Pulse Oximetry 97 96 Oxygen Delivery Method Room Air MDM - Male Genitourinary Lab Data Labs: Lab Results 01/07/23 Range/Units 22:48 Urine Color Charmaine Urine Appearance Clear Urine pH 5.5 (4.5-8.0) Ur Specific [place] 1.015 (1.000-1.035) Urine Protein 1+ H (Negative) Urine Glucose (UA) Negative (Negative) g/dL Urine Ketones Negative (NEGATIVE) Urine Occult Blood 3+ H (Negative) Urine Nitrate Negative (Negative) Urine Bilirubin Negative (NEGATIVE) Urine Urobilinogen 0.2 (0.2) E.U./dL Ur Leukocyte Esterase Trace H (NEGATIVE) Urine RBC 5-10/hpf H (0-5/HPF) Urine WBC 0-1/hpf (0-5/HPF) Urine Bacteria None seen (None) Ur Culture Indicated? Specimen cultured MDM Narrative Medical decision making narrative: Patient has prostate cancer with probable bladder cancer difficult Hawkins catheter placement with now some penile irritation. Urinalysis previously showed nitrates however there was no growth today's urinalysis shows blood but no other sign of infection. At this time recommend that he continue his Macrobid. I suspect that the Hawkins catheters causing some irritation but no signs of ulcer. The catheter placement is moved to the other leg he is also given some Pyridium to help with pain and discomfort recommended that he take Tylenol and ibuprofen at home. Patient is not having fever or other signs of sepsis. No other indication for blood work or further evaluation Discharge Plan Departure Patient Disposition: Home Clinical Impression: Penile irritation Instructions: How to Care for Your Hawkins Catheter -- Male Activity Restrictions/Additional Instructions: *You have been diagnosed with penile irritation *What to do: I hope that this feels better for you. Try to move placement of Hawkins catheter around it may help *Continue to take medications as directed Pyridium 1 tablet twice a day if needed if it does not help do not take May try lidocaine a little bit every 6 hours if needed You may also take Tylenol 650 mg every 4-6 hours if needed Motrin 600 mg every 6 hours if needed *Follow up with your primary care provider in 2-3 days or call [phone] *Return to ER if you should have increasing pain for gross blood inability to urinate or any new, worsening or concerning symptoms Prescriptions: New phenazopyridine [Pyridium] 100 mg tablet 100 mg PO TID PRN (Reason: pain) Qty: 6 0RF No Action famotidine 40 mg tablet 40 mg PO BEDTIME multivitamin Tablet 1 tab PO DAILY cholecalciferol (vitamin D3) [Vitamin D3] 2,000 unit Capsule 2,000 unit PO DAILY pantoprazole [Protonix] 40 mg tablet,delayed release (DR/EC) 40 mg PO QAM Qty: 30 0RF ciprofloxacin HCl [Cipro] 500 mg tablet 500 mg PO BID Qty: 14 0RF Referrals: Blayne Bynum MD [Primary Care Provider] - Stand Alone Forms: Patient Portal/API
[2023-01-07 23:00] VITALS: BP 162/89; PULSE 63; O2SAT 97
[2023-01-07 23:04] LABS: Bacteria Urine None Seen; Culture Indicated Urine Specimen Cultured; RBC Urine 5-10/HPF (0-5/HPF); WBC Urine 0-1/HPF (0-5/HPF)
[2023-01-07] MEDS: LIDOCAINE 2% (GLYDO) 6 ML GEL TOP (23:17)
[2023-01-07] MEDS: PHENAZOPYRIDINE 100 MG TABLET 200 MG PO (23:18)
[2023-01-07 23:30] VITALS: BP 145/71; PULSE 58; O2SAT 96
== END 2023-01-07 23:46 | disposition home or self-care (01) ==
PROVIDERS: Emergency Provider Emergency Medicine; PCP Urology
DX: N48.89 Other specified disorders of penis (principal)
CPT/HCPCS: 81001; 87086; 99283

== ENCOUNTER 2025-09-28 16:45 | Emergency (ER) | payer MEDICARE, BC, SELFPAY ==
[2018-05-10 18:41] VITALS: BMI 22.9
[2025-09-28 17:01] VITALS: BP 196/84; PULSE 89; RESP 18; TEMP 36.7; O2SAT 96; BMI 21.5
--- NOTE | 2025-09-28 17:41 | ED.MALEGU ---
HPI - Male Genitourinary General Chief complaint: Urogenital-Male Stated complaint: catheder issues. post op blad surg Time Seen by Provider: 09/28/25 17:16 Source: patient Mode of arrival: Ambulatory History of Present Illness HPI Narrative: 85-year-old history of prostate cancer and bladder cancer status post TURP few days ago for which he had a Ruvalcaba placed prior to discharge and is on Flomax but today noticed leakage around the Ruvalcaba site and urinary discomfort came in to be evaluated. Other than what is stated 14 point review of system is negative. Related Data Home Medications ?Medication ?Instructions ?Recorded ?Confirmed cholecalciferol (vitamin D3) 50 2,000 unit PO DAILY 05/10/18 05/10/18 mcg (2,000 unit) capsule (Vitamin D3) famotidine 40 mg tablet 40 mg PO BEDTIME 05/10/18 05/10/18 multivitamin 1 tab PO DAILY 05/10/18 05/10/18 Previous Rx's ?Medication ?Instructions ?Recorded pantoprazole 40 mg tablet,delayed 40 mg PO QAM #30 tabs 05/11/18 release (Protonix) ciprofloxacin HCl 500 mg tablet 500 mg PO BID #14 tabs 01/05/23 (Cipro) phenazopyridine 100 mg tablet 100 mg PO TID PRN pain 6 doses #6 01/07/23 (Pyridium) tabs nitrofurantoin 100 mg PO Q12H 5 days #10 caps 09/28/25 monohydrate/macrocrystals 100 mg capsule (Macrobid) Allergies Allergy/AdvReac Type Severity Reaction Status Date / Time No Known Drug Allergies Allergy Verified 09/28/25 17:02 Review of Systems Review of Systems ROS Unobtainable: All systems reviewed & are unremarkable except as noted in HPI and below Patient History Medical History Prostate CA Family History Father Congestive heart failure Sister No problems noted. Social History household members: spouse Smoking Status: Never smoker alcohol intake frequency: a few times a week Exam Narrative Exam Narrative: GENERAL: [85] year old patient appears stated age. Well-developed patient, in mild distress. HEAD: Atraumatic. Normocephalic. EYES: Pupils equal round and reactive. Extraocular motions intact. No scleral icterus. No injection or drainage. ENT: Nose without bleeding, purulent drainage. Throat without erythema, tonsillar hypertrophy or exudate. Airway patent. NECK: Trachea midline. Non tender GASTROINTESTINAL: Abdomen soft, non-tender, nondistended. EXTREMITIES: No edema or joint tenderness. BACK: Nontender without deformity or crepitance. No flank tenderness. NEURO: AOx3. SKIN: No rash or erythema of visible areas Initial Vital Signs Initial Vital Signs: Vital Signs Temperature 98.1 F 09/28/25 17:01 Pulse Rate 89 09/28/25 17:01 Respiratory Rate 18 09/28/25 17:01 Blood Pressure 196/84 H 09/28/25 17:01 Pulse Oximetry 96 09/28/25 17:01 Oxygen Delivery Method Room Air 09/28/25 17:01 Course Vital Signs Vital signs: Vital Signs - 8 hr 09/28/25 17:01 Temperature 98.1 F Pulse Rate 89 Respiratory Rate 18 Blood Pressure 196/84 H Pulse Oximetry 96 Oxygen Delivery Method Room Air MDM - Male Genitourinary MDM Narrative Medical decision making narrative: All labwork, vital signs, dance historian note, medication list, previous ER visits and all imaging studies reviewed. Clots removed from ruvalcaba. On flomax at this time. He still has leakage around tip of penis. Recent TURP with instructions from Uro MD to remove on Wednesday. Discharge Plan Departure Patient Disposition: Home Clinical Impression: Acute UTI Complication of Ruvalcaba catheter Qualifiers: Encounter type: initial encounter Qualified Code(s): T83.9XXA - Unspecified complication of genitourinary prosthetic device, implant and graft, initial encounter Instructions: How to Care for Your Ruvalcaba Catheter -- Male, DI for Urinary Retention in Men Activity Restrictions/Additional Instructions: Return with new or worsening symptoms. Take medicine as directed. Follow up with [facility] urologist as previously scheduled. Prescriptions: New nitrofurantoin monohyd/m-cryst [Macrobid] 100 mg capsule 100 mg PO Q12H 5 Days Qty: 10 0RF Rx Instructions: must administer with a meal/food No Action famotidine 40 mg tablet 40 mg PO BEDTIME multivitamin Tablet 1 tab PO DAILY cholecalciferol (vitamin D3) [Vitamin D3] 2,000 unit Capsule 2,000 unit PO DAILY pantoprazole [Protonix] 40 mg tablet,delayed release (DR/EC) 40 mg PO QAM Qty: 30 0RF phenazopyridine [Pyridium] 100 mg tablet 100 mg PO TID PRN (Reason: pain) Qty: 6 0RF ciprofloxacin HCl [Cipro] 500 mg tablet 500 mg PO BID Qty: 14 0RF Stand Alone Forms: Patient Portal/API
--- NOTE | 2025-09-28 18:33 | PC.NURSE ---
Pt presents with obstructed catheter. Catheter bag removed, flushed with NS. Multiple large clots passed. irrigated until clear. old bag replaced with new one. urine sample from bag sent.
[2025-09-28] MEDS: NITROFURANTOIN ER 100 MG CAPSULE PO (18:59)
[2025-09-28 19:04] VITALS: PULSE 86; RESP 16; TEMP 36.8; O2SAT 98
== END 2025-09-28 19:07 | disposition home or self-care (01) ==
PROVIDERS: Emergency Provider Family Medicine
DX: N39.0 Urinary tract infection, site not specified (principal); T83.9XXA Unspecified complication of genitourinary prosthetic device, implant and graft, initial encounter; Z98.890 Other specified postprocedural states
CPT/HCPCS: 81003; 99283

== ENCOUNTER → 2025-10-29 11:12 | Outpatient (CLI) | payer MEDICARE, BC, SELFPAY ==
[2018-05-10 18:41] VITALS: BMI 22.9
--- NOTE | 2025-10-29 11:18 | DI.CT.S_ITS ---
PROCEDURE: CT ABDOMEN PELVIS WO/W CON INDICATIONS: Malignant neoplasm of trigone of bladder TECHNIQUE: Optional 5 mm thick noncontrast images acquired from the diaphragm to the symphysis pubis. After the administration of intravenous contrast, 5 mm thick images acquired from the diaphragm to the symphysis pubis after a 10-minute delay. 2 mm thick coronal and sagittal reformats were then performed of the kidneys and ureters. For radiation dose reduction, the following was used: automated exposure control, adjustment of mA and/or kV according to patient size. COMPARISON: [facility], CT, CT IVP, 12/14/2022, 8:24. FINDINGS: Image quality: Diagnostic. Kidneys and Ureters: Both kidneys are normal in size, without hydronephrosis or nephrolithiasis. No perinephric fat stranding. There is normal bilateral renal enhancement. Renal calyces appear normal in morphology when filled with contrast. Opacified portions of both ureters demonstrate normal caliber. Bilateral renal cysts are again noted. Bladder: Bladder wall thickness is unremarkable without suspicious asymmetric wall thickening or focal intraluminal filling defects. No perivesicular stranding. No calcified bladder stones. OTHER: Lower chest: Small hiatal hernia. Lung bases are clear. Stable calcified pulmonary granulomas in the right lower lobe. Liver: No solid mass. Gallbladder: No radiopaque gallstones or wall thickening. Biliary ducts: No biliary dilation. Pancreas: No ductal dilation. Spleen: Size is within normal limits. Calcified splenic granulomas as before. Adrenal Glands: No adrenal nodules. Stomach and Bowel: Normal colonic caliber, without significant wall thickening. Colonic diverticulosis without acute diverticulitis. Normal appendix. No evidence for small bowel obstruction or associated inflammatory changes. Peritoneum: No abnormal intraperitoneal fluid. No free air. Ventral Wall: There is a fat-containing umbilical hernia without acute inflammation. Abdominal Nodes: No retroperitoneal or mesenteric adenopathy by size criteria. Vessels: Scattered atherosclerotic calcifications of the abdominal aorta and iliac vessels without aneurysmal dilatation. The inferior vena cava appears patent. PELVIS: Pelvic Organs: Prostatomegaly. Radiation seeds are noted within the prostate/prostate fossa. Pelvic Nodes: No enlarged lymph nodes. Miscellaneous: There is a fat and distal colon containing left inguinal hernia without evidence for acute inflammatory changes or obstruction proximally. Bones: No aggressive osseous abnormality. No acute vertebral body compression fractures. Multilevel spondylitic changes throughout the imaged spine. No suspicious osseous lesions. IMPRESSION: No nephrolithiasis or filling defects within the opacified renal collecting system or ureters. Prostatomegaly and radiation seeds. There is mass effect upon the inferior, posterior wall of the urinary bladder. Otherwise, no suspicious urinary bladder wall thickening or intraluminal filling defects. If there is persistent clinical concern, further evaluation with cystoscopy can be considered. Colonic diverticulosis without acute diverticulitis. Fat and distal colon containing left inguinal hernia without evidence for acute inflammatory changes or obstruction proximally. Other chronic/non-acute findings as above. Dictated by: Dhaval Oleary M.D. on 10/31/2025 at 0:07 Approved by: Dhaval Oleary M.D. on 10/31/2025 at 0:17
[2025-10-29 12:16] LABS: Estimated Glomerular Filt Rate 56 mL/min (>60)
== END ==
LOC: CT 11:15
PROVIDERS: PCP Family Medicine; Referring Provider Urology; Visit Provider Urology
DX: C67.0 Malignant neoplasm of trigone of bladder (principal); N28.1 Cyst of kidney, acquired; K44.9 Diaphragmatic hernia without obstruction or gangrene; K57.90 Diverticulosis of intestine, part unspecified, without perforation or abscess without bleeding; N40.0 Benign prostatic hyperplasia without lower urinary tract symptoms
CPT/HCPCS: 36415; 74178; 82565; Q9967